=== PATIENT | male | born 1970 | race Hispanic/Latino ===

== ENCOUNTER → 2016-03-13 | Outpatient (CLI) | payer BC ==
[~2016-03-13] MED LIST: OMEP10CASR PO; SUDA30TA PO
[2016-03-13 18:57] LABS: ALBUMIN 3.8 GM/DL (3.2-5.2); ALBUMIN/GLOBULIN RATIO 1.12 (1.00-1.93); ALKALINE PHOSPHATASE 146 U/L (45-117); ALT/SGPT 60 U/L (12-78); ANION GAP 9 MEQ/L (8-16); AST/SGOT 26 U/L (15-37); BILIRUBIN,TOTAL 0.7 MG/DL (0.2-1.0); BLOOD UREA NITROGEN 20 MG/DL (7-18); CALCIUM LEVEL 8.7 MG/DL (8.5-10.1); CARBON DIOXIDE LEVEL 29 MEQ/L (21-32); CHLORIDE LEVEL 105 MEQ/L (98-107); CREATININE FOR GFR 0.95 MG/DL (0.70-1.30); GLOMERULAR FILTRATION RATE > 60.0 (>60); GLUCOSE, FASTING 90 MG/DL (70-105); MAGNESIUM LEVEL 2.1 MG/DL (1.8-2.4); POTASSIUM SERUM 4.5 MEQ/L (3.5-5.1); SODIUM LEVEL 143 MEQ/L (136-145); TOTAL PROTEIN 7.2 GM/DL (6.4-8.2)
[2016-03-13 18:58] LABS: BASO % 0.3 % (0.0-1.0); EOS # 0.1 K/mm3 (0.0-0.50); EOS % 1.5 % (0.0-3.0); LARGE UNSTAINED CELL # 0.2 K/mm3 (0.0-0.4); LARGE UNSTAINED CELL % 2.4 % (0.0-4.0); LYMPH # 2.8 K/mm3 (1.5-4.5); LYMPH % 34.4 % (24.0-44.0); MEAN CORPUSCULAR HEMOGLOBIN 25.4 pg (27.0-33.0); MEAN CORPUSCULAR HGB CONC 31.4 g/dl (32.0-36.5); MEAN CORPUSCULAR VOLUME 80.7 fl (80.0-96.0); MONO # 0.6 K/mm3 (0.0-0.8); MONO % 7.8 % (0.0-5.0); NEUTROPHILS # 4.3 K/mm3 (1.8-7.7); NEUTROPHILS % 53.6 % (36.0-66.0); PLATELET COUNT, AUTOMATED 230 k/mm3 (150-450); RED CELL DISTRIBUTION WIDTH 13.6 % (11.5-14.5); WHITE BLOOD COUNT 8.1 K/mm3 (4.0-10.0)
--- NOTE | 2016-03-14 02:20 | REP ---
Clinical: Shortness of breath . Comparison: None . Technique: PA and lateral. Findings: The mediastinum and cardiac silhouette are normal. The lung jones are clear and without acute consolidation, effusion, or pneumothorax. The skeletal structures are intact and normal. Impression: 1. No acute cardiopulmonary process. Signed by Yasmani Carrillo MD 03/14/2016 02:12 A
== END ==
LOC: M SMT 15:55
PROVIDERS: ATTEND Emergency Medicine
DX: R00.2 Palpitations (principal); R06.02 Shortness of breath

== ENCOUNTER → 2016-04-12 | Outpatient (CLI) | payer BC ==
[2016-04-12 13:59] LABS: ALBUMIN 3.7 GM/DL (3.2-5.2); ALBUMIN/GLOBULIN RATIO 0.95 (1.00-1.93); BILIRUBIN,DIRECT 0.1 MG/DL (0.0-0.2); BILIRUBIN,TOTAL 0.6 MG/DL (0.2-1.0); TOTAL PROTEIN 7.6 GM/DL (6.4-8.2)
[2016-04-12 14:25] LABS: MEAN CORPUSCULAR HEMOGLOBIN 25.7 pg (27.0-33.0); MEAN CORPUSCULAR HGB CONC 31.9 g/dl (32.0-36.5); MEAN CORPUSCULAR VOLUME 80.6 fl (80.0-96.0); RED CELL DISTRIBUTION WIDTH 13.8 % (11.5-14.5); WHITE BLOOD COUNT 6.6 K/mm3 (4.0-10.0)
== END ==
LOC: M SMT 08:14
PROVIDERS: ATTEND Urology
DX: E29.1 Testicular hypofunction (principal)

== ENCOUNTER → 2016-07-06 | Outpatient (CLI) | payer BC ==
[2016-07-06 14:37] LABS: BASO % 0.4 % (0.0-1.0); EOS # 0.2 K/mm3 (0.0-0.50); EOS % 2.5 % (0.0-3.0); LARGE UNSTAINED CELL # 0.2 K/mm3 (0.0-0.4); LARGE UNSTAINED CELL % 2.3 % (0.0-4.0); LYMPH # 2.8 K/mm3 (1.5-4.5); LYMPH % 41.7 % (24.0-44.0); MEAN CORPUSCULAR HEMOGLOBIN 26.4 pg (27.0-33.0); MEAN CORPUSCULAR HGB CONC 32.6 g/dl (32.0-36.5); MONO # 0.5 K/mm3 (0.0-0.8); MONO % 7.9 % (0.0-5.0); NEUTROPHILS % 45.1 % (36.0-66.0); PLATELET COUNT, AUTOMATED 208 k/mm3 (150-450); RED CELL DISTRIBUTION WIDTH 14.6 % (11.5-14.5); WHITE BLOOD COUNT 6.7 K/mm3 (4.0-10.0)
[2016-07-06 14:42] LABS: ALBUMIN 3.5 GM/DL (3.2-5.2); ALBUMIN/GLOBULIN RATIO 1.03 (1.00-1.93); ALKALINE PHOSPHATASE 120 U/L (45-117); ALT/SGPT 61 U/L (12-78); ANION GAP 7 MEQ/L (8-16); AST/SGOT 23 U/L (15-37); BILIRUBIN,DIRECT 0.1 MG/DL (0.0-0.2); BILIRUBIN,TOTAL 0.6 MG/DL (0.2-1.0); BLOOD UREA NITROGEN 23 MG/DL (7-18); CALCIUM LEVEL 8.7 MG/DL (8.5-10.1); CARBON DIOXIDE LEVEL 30 MEQ/L (21-32); CHLORIDE LEVEL 104 MEQ/L (98-107); CREATININE FOR GFR 0.84 MG/DL (0.70-1.30); GLOMERULAR FILTRATION RATE > 60.0 (>60); GLUCOSE, FASTING 100 MG/DL (70-105); POTASSIUM SERUM 4.6 MEQ/L (3.5-5.1); SODIUM LEVEL 141 MEQ/L (136-145); TOTAL PROTEIN 6.9 GM/DL (6.4-8.2)
== END ==
LOC: M SMT 09:12
PROVIDERS: ATTEND Urology
DX: E29.1 Testicular hypofunction (principal)

== ENCOUNTER → 2016-08-21 | Outpatient (CLI) | payer BC ==
[2016-08-21 13:15] LABS: MEAN CORPUSCULAR HEMOGLOBIN 25.8 pg (27.0-33.0); MEAN CORPUSCULAR HGB CONC 32.4 g/dl (32.0-36.5); MEAN CORPUSCULAR VOLUME 79.6 fl (80.0-96.0); RED CELL DISTRIBUTION WIDTH 14.3 % (11.5-14.5); WHITE BLOOD COUNT 7.2 K/mm3 (4.0-10.0)
[2016-08-21 13:50] LABS: ALBUMIN 3.6 GM/DL (3.2-5.2); ALBUMIN/GLOBULIN RATIO 1.03 (1.00-1.93); ALKALINE PHOSPHATASE 120 U/L (45-117); ALT/SGPT 57 U/L (12-78); ANION GAP 11 MEQ/L (8-16); AST/SGOT 26 U/L (15-37); BILIRUBIN,DIRECT 0.1 MG/DL (0.0-0.2); BILIRUBIN,TOTAL 0.8 MG/DL (0.2-1.0); BLOOD UREA NITROGEN 20 MG/DL (7-18); CALCIUM LEVEL 9.2 MG/DL (8.5-10.1); CARBON DIOXIDE LEVEL 26 MEQ/L (21-32); CHLORIDE LEVEL 103 MEQ/L (98-107); GLOMERULAR FILTRATION RATE > 60.0 (>60); GLUCOSE, FASTING 101 MG/DL (70-105); POTASSIUM SERUM 3.9 MEQ/L (3.5-5.1); SODIUM LEVEL 140 MEQ/L (136-145); TOTAL PROTEIN 7.1 GM/DL (6.4-8.2)
== END ==
LOC: M SMT 10:57
PROVIDERS: ATTEND Urology
DX: E29.1 Testicular hypofunction (principal)

== ENCOUNTER → 2016-09-27 | Outpatient (CLI) | payer BC ==
[2016-09-27 12:41] LABS: BASO % 0.4 % (0.0-1.0); EOS # 0.1 K/mm3 (0.0-0.50); EOS % 2.3 % (0.0-3.0); LARGE UNSTAINED CELL # 0.1 K/mm3 (0.0-0.4); LARGE UNSTAINED CELL % 1.6 % (0.0-4.0); LYMPH # 2.7 K/mm3 (1.5-4.5); LYMPH % 44.3 % (24.0-44.0); MEAN CORPUSCULAR HEMOGLOBIN 25.9 pg (27.0-33.0); MEAN CORPUSCULAR HGB CONC 31.9 g/dl (32.0-36.5); MONO # 0.5 K/mm3 (0.0-0.8); MONO % 8.5 % (0.0-5.0); NEUTROPHILS # 2.6 K/mm3 (1.8-7.7); NEUTROPHILS % 42.9 % (36.0-66.0); PLATELET COUNT, AUTOMATED 223 k/mm3 (150-450); RED CELL DISTRIBUTION WIDTH 14.3 % (11.5-14.5)
[2016-09-27 13:37] LABS: ALBUMIN 3.7 GM/DL (3.2-5.2); ALBUMIN/GLOBULIN RATIO 1.03 (1.00-1.93); ALKALINE PHOSPHATASE 113 U/L (45-117); ALT/SGPT 63 U/L (12-78); ANION GAP 6 MEQ/L (8-16); AST/SGOT 23 U/L (15-37); BILIRUBIN,TOTAL 0.9 MG/DL (0.2-1.0); BLOOD UREA NITROGEN 20 MG/DL (7-18); CALCIUM LEVEL 8.9 MG/DL (8.5-10.1); CARBON DIOXIDE LEVEL 29 MEQ/L (21-32); CHLORIDE LEVEL 104 MEQ/L (98-107); GLOMERULAR FILTRATION RATE > 60.0 (>60); GLUCOSE, FASTING 87 MG/DL (70-105); POTASSIUM SERUM 4.7 MEQ/L (3.5-5.1); SODIUM LEVEL 139 MEQ/L (136-145); TOTAL PROTEIN 7.3 GM/DL (6.4-8.2)
== END ==
LOC: M SMT 09:42
PROVIDERS: ATTEND Orthopaedic Surgery
DX: M16.12 Unilateral primary osteoarthritis, left hip (principal)

== ENCOUNTER → 2016-11-27 | Outpatient (REF) | payer BC ==
[2016-11-27 13:24] LABS: MEAN CORPUSCULAR HGB CONC 31.9 g/dl (32.0-36.5); MEAN CORPUSCULAR VOLUME 78.2 fl (80.0-96.0); PLATELET COUNT, AUTOMATED 254 10^3/uL (150-450); RED CELL DISTRIBUTION WIDTH 15.8 % (11.5-14.5); WHITE BLOOD COUNT 7.6 10^3/uL (4.0-10.0)
[2016-11-27 13:35] LABS: ALBUMIN 3.5 GM/DL (3.2-5.2); ALBUMIN/GLOBULIN RATIO 0.92 (1.00-1.93); ALKALINE PHOSPHATASE 112 U/L (45-117); ALT/SGPT 54 U/L (12-78); ANION GAP 5 MEQ/L (8-16); AST/SGOT 30 U/L (15-37); BILIRUBIN,DIRECT 0.1 MG/DL (0.0-0.2); BILIRUBIN,TOTAL 0.6 MG/DL (0.2-1.0); BLOOD UREA NITROGEN 22 MG/DL (7-18); CALCIUM LEVEL 8.8 MG/DL (8.5-10.1); CARBON DIOXIDE LEVEL 30 MEQ/L (21-32); CHLORIDE LEVEL 104 MEQ/L (98-107); CREATININE FOR GFR 1.07 MG/DL (0.70-1.30); GLOMERULAR FILTRATION RATE > 60.0 (>60); GLUCOSE, FASTING 97 MG/DL (70-105); SODIUM LEVEL 139 MEQ/L (136-145); TOTAL PROTEIN 7.3 GM/DL (6.4-8.2)
== END ==
LOC: M LABSMT 12:51
PROVIDERS: ATTEND Urology
DX: E29.1 Testicular hypofunction (principal)

== ENCOUNTER → 2017-01-01 | Outpatient (CLI) | payer BC ==
[2017-01-01 19:32] LABS: BASO % 0.3 % (0.0-1.0); EOS # 0.1 10^3/uL (0.0-0.50); EOS % 1.7 % (0.0-3.0); IMMATURE GRANULOCYTE % 0.4 % (0-0); LYMPH % 38.8 % (24.0-44.0); MEAN CORPUSCULAR HGB CONC 31.8 g/dl (32.0-36.5); MEAN CORPUSCULAR VOLUME 78.8 fl (80.0-96.0); MONO # 0.9 10^3/uL (0.0-0.8); MONO % 11.3 % (0.0-5.0); NEUTROPHILS # 3.6 10^3/uL (1.8-7.7); NEUTROPHILS % 47.5 % (36.0-66.0); PLATELET COUNT, AUTOMATED 296 10^3/uL (150-450); RED CELL DISTRIBUTION WIDTH 16.7 % (11.5-14.5); WHITE BLOOD COUNT 7.6 10^3/uL (4.0-10.0)
== END ==
LOC: M SMT 15:01
PROVIDERS: ATTEND Emergency Medicine
DX: R53.83 Other fatigue (principal)

== ENCOUNTER → 2017-01-14 | Outpatient (CLI) | payer BC ==
[2017-01-14 09:05] LABS: MEAN CORPUSCULAR HEMOGLOBIN 25.1 pg (27.0-33.0); MEAN CORPUSCULAR HGB CONC 32.1 g/dl (32.0-36.5); MEAN CORPUSCULAR VOLUME 78.3 fl (80.0-96.0); PLATELET COUNT, AUTOMATED 235 10^3/uL (150-450); RED CELL DISTRIBUTION WIDTH 17.2 % (11.5-14.5); WHITE BLOOD COUNT 8.6 10^3/uL (4.0-10.0)
[2017-01-14 09:30] LABS: ALBUMIN 3.7 GM/DL (3.2-5.2); ALKALINE PHOSPHATASE 108 U/L (45-117); ALT/SGPT 48 U/L (12-78); ANION GAP 8 MEQ/L (8-16); AST/SGOT 19 U/L (7-37); BILIRUBIN,DIRECT 0.2 MG/DL (0.0-0.2); BILIRUBIN,TOTAL 0.9 MG/DL (0.2-1.0); BLOOD UREA NITROGEN 18 MG/DL (7-18); CALCIUM LEVEL 8.9 MG/DL (8.5-10.1); CARBON DIOXIDE LEVEL 30 MEQ/L (21-32); CHLORIDE LEVEL 101 MEQ/L (98-107); GLOMERULAR FILTRATION RATE > 60.0 (>60); GLUCOSE, FASTING 104 MG/DL (70-105); POTASSIUM SERUM 4.3 MEQ/L (3.5-5.1); SODIUM LEVEL 139 MEQ/L (136-145); TOTAL PROTEIN 7.4 GM/DL (6.4-8.2)
== END ==
LOC: M LAB 08:37
PROVIDERS: ATTEND Urology
DX: E29.1 Testicular hypofunction (principal)

== ENCOUNTER 2017-03-05 12:22 | Day surgery (SDC) | payer BC ==
[2017-03-05] MEDS: NS 1,000 ML IV (13:15)
[2017-03-05] MEDS ORDERED: PROPOFOL 200 MG/20 ML VIAL As Ordered ×2 (13:52)
[2017-03-05] MEDS ORDERED: LIDOCAINE 2% INJ 100 MG/5 ML SDV (FOR ANES.) As Ordered (13:52)
== END 2017-03-05 14:42 | disposition home or self-care (01) ==
LOC: M OPP 12:22
DX: K62.5 Hemorrhage of anus and rectum (principal); D12.6 Benign neoplasm of colon, unspecified; K64.0 First degree hemorrhoids; K57.30 Diverticulosis of large intestine without perforation or abscess without bleeding; K21.9 Gastro-esophageal reflux disease without esophagitis; Z80.0 Family history of malignant neoplasm of digestive organs; Z79.899 Other long term (current) drug therapy; Z91.030 Bee allergy status
CPT/HCPCS: 45385

== ENCOUNTER → 2017-04-11 | Outpatient (CLI) | payer BC ==
[2017-04-11 18:00] LABS: HEMATOCRIT 46.4 % (42.0-52.0); HEMOGLOBIN 15.3 g/dl (14.0-18.0); MEAN CORPUSCULAR HEMOGLOBIN 26.2 pg (27.0-33.0); MEAN CORPUSCULAR VOLUME 79.5 fl (80.0-96.0); PLATELET COUNT, AUTOMATED 248 10^3/uL (150-450); RED BLOOD COUNT 5.84 10^6/uL (4.30-6.10); RED CELL DISTRIBUTION WIDTH 15.5 % (11.5-14.5)
[2017-04-11 19:02] LABS: TESTOSTERONE 227 NG/DL (241-827)
[2017-04-11 19:11] LABS: ALBUMIN/GLOBULIN RATIO 1.08 (1.00-1.93); ALKALINE PHOSPHATASE 111 U/L (45-117); ALT/SGPT 61 U/L (12-78); AST/SGOT 24 U/L (7-37); BILIRUBIN,DIRECT 0.1 MG/DL (0.0-0.2); BILIRUBIN,TOTAL 0.6 MG/DL (0.2-1.0); TOTAL PROTEIN 7.7 GM/DL (6.4-8.2)
== END ==
LOC: M SMT 15:53
DX: E29.1 Testicular hypofunction (principal)
CPT/HCPCS: 84403

== ENCOUNTER → 2017-05-31 | Outpatient (CLI) | payer BC ==
[2017-05-31 13:56] LABS: PROSTATIC SPECIFIC AG MONITOR 1.64 NG/ML (< 4.0)
[2017-05-31 14:01] LABS: TESTOSTERONE 211 NG/DL (241-827)
== END ==
LOC: M SMT 11:21
DX: E29.1 Testicular hypofunction (principal)
CPT/HCPCS: 84403

== ENCOUNTER → 2017-12-14 | Outpatient (CLI) | payer BC ==
[2017-12-14 13:49] LABS: ALBUMIN 3.8 GM/DL (3.2-5.2); ALBUMIN/GLOBULIN RATIO 1.12 (1.00-1.93); ALKALINE PHOSPHATASE 114 U/L (45-117); ALT/SGPT 72 U/L (12-78); ANION GAP 7 MEQ/L (8-16); AST/SGOT 31 U/L (7-37); BILIRUBIN,TOTAL 0.6 MG/DL (0.2-1.0); BLOOD UREA NITROGEN 19 MG/DL (7-18); CARBON DIOXIDE LEVEL 29 MEQ/L (21-32); CHLORIDE LEVEL 103 MEQ/L (98-107); CHOLESTEROL LEVEL 159 MG/DL (<200); CHOLESTEROL RISK RATIO 4.818 (<5); CREATININE FOR GFR 0.78 MG/DL (0.70-1.30); GLOMERULAR FILTRATION RATE > 60.0 (>60); GLUCOSE, FASTING 97 MG/DL (70-100); HDL CHOLESTEROL 33 MG/DL (>40); LDL CHOLESTEROL 101 MG/DL (<100); NON-HDL-C 126 MG/DL; POTASSIUM SERUM 4.4 MEQ/L (3.5-5.1); SODIUM LEVEL 139 MEQ/L (136-145); TOTAL PROTEIN 7.2 GM/DL (6.4-8.2); TRIGLYCERIDES LEVEL 127 MG/DL (<150)
[2017-12-14 15:25] LABS: ESTIMATED AVERAGE GLUCOSE 123 MG/DL (60-110); HEMOGLOBIN A1c 5.9 %
== END ==
LOC: M SMT 09:52
DX: Z00.00 Encounter for general adult medical examination without abnormal findings (principal)
CPT/HCPCS: 80053

== ENCOUNTER → 2018-01-03 | Outpatient (CLI) | payer BC ==
[2018-01-03 13:59] LABS: BASO % 0.4 % (0.0-1.0); EOS # 0.2 10^3/uL (0.0-0.50); EOS % 2.1 % (0.0-3.0); HEMATOCRIT 47.8 % (42.0-52.0); HEMOGLOBIN 15.5 g/dl (13.5-17.5); IMMATURE GRANULOCYTE % 0.4 % (0-3.0); LYMPH # 3.2 10^3/uL (1.5-4.5); LYMPH % 43.9 % (24.0-44.0); MEAN CORPUSCULAR HEMOGLOBIN 26.9 pg (27.0-33.0); MEAN CORPUSCULAR HGB CONC 32.4 g/dl (32.0-36.5); MEAN CORPUSCULAR VOLUME 82.8 fl (80.0-96.0); MONO # 0.7 10^3/uL (0.0-0.8); MONO % 9.6 % (0.0-5.0); NEUTROPHILS # 3.2 10^3/uL (1.8-7.7); NEUTROPHILS % 43.6 % (36.0-66.0); PLATELET COUNT, AUTOMATED 240 10^3/uL (150-450); RED BLOOD COUNT 5.77 10^6/uL (4.30-6.10); RED CELL DISTRIBUTION WIDTH 13.8 % (11.5-14.5); WHITE BLOOD COUNT 7.3 10^3/uL (4.0-10.0)
[2018-01-03 14:27] LABS: ALBUMIN 3.6 GM/DL (3.2-5.2); ALBUMIN/GLOBULIN RATIO 0.97 (1.00-1.93); ALKALINE PHOSPHATASE 117 U/L (45-117); ALT/SGPT 79 U/L (12-78); ANION GAP 8 MEQ/L (8-16); AST/SGOT 31 U/L (7-37); BILIRUBIN,TOTAL 0.9 MG/DL (0.2-1.0); BLOOD UREA NITROGEN 18 MG/DL (7-18); CALCIUM LEVEL 8.3 MG/DL (8.5-10.1); CARBON DIOXIDE LEVEL 27 MEQ/L (21-32); CHLORIDE LEVEL 102 MEQ/L (98-107); CREATININE FOR GFR 0.89 MG/DL (0.70-1.30); GLOMERULAR FILTRATION RATE > 60.0 (>60); GLUCOSE, FASTING 106 MG/DL (70-100); POTASSIUM SERUM 4.2 MEQ/L (3.5-5.1); PSA SCREENING 0.9 NG/ML (< 4.0); SODIUM LEVEL 137 MEQ/L (136-145); TESTOSTERONE 283 NG/DL (241-827); TOTAL PROTEIN 7.3 GM/DL (6.4-8.2)
== END ==
LOC: M SMT 09:36
DX: E29.1 Testicular hypofunction (principal)
CPT/HCPCS: 84403

== ENCOUNTER → 2018-06-06 | Outpatient (CLI) | payer BC ==
[~2018-06-06] MED LIST changes: +CHLO125TA PO; +LISI-542 PO
[2018-06-06 09:38] LABS: HEMATOCRIT 49.1 % (42.0-52.0); HEMOGLOBIN 15.9 g/dl (13.5-17.5); MEAN CORPUSCULAR HEMOGLOBIN 26.2 pg (27.0-33.0); MEAN CORPUSCULAR HGB CONC 32.4 g/dl (32.0-36.5); MEAN CORPUSCULAR VOLUME 80.9 fl (80.0-96.0); PLATELET COUNT, AUTOMATED 245 10^3/uL (150-450); RED BLOOD COUNT 6.07 10^6/uL (4.30-6.10); WHITE BLOOD COUNT 7.4 10^3/uL (4.0-10.0)
[2018-06-06 09:59] LABS: ALBUMIN 3.9 GM/DL (3.2-5.2); BILIRUBIN,DIRECT 0.2 MG/DL (0.0-0.2); BILIRUBIN,TOTAL 0.8 MG/DL (0.2-1.0); TOTAL PROTEIN 7.5 GM/DL (6.4-8.2)
== END ==
LOC: M LAB 08:36
PROVIDERS: ATTEND Urology
DX: E29.1 Testicular hypofunction (principal)

== ENCOUNTER → 2018-06-13 | Outpatient (CLI) | payer BC ==
[2018-06-13 11:09] LABS: BLOOD UREA NITROGEN 23 MG/DL (7-18); CALCIUM LEVEL 9.2 MG/DL (8.5-10.1); CARBON DIOXIDE LEVEL 27 MEQ/L (21-32); CHLORIDE LEVEL 102 MEQ/L (98-107); CREATININE FOR GFR 0.86 MG/DL (0.70-1.30); GLOMERULAR FILTRATION RATE > 60.0 (>60); GLUCOSE, FASTING 97 MG/DL (70-100); POTASSIUM SERUM 4.1 MEQ/L (3.5-5.1); SODIUM LEVEL 138 MEQ/L (136-145)
== END ==
LOC: M LAB 10:07
PROVIDERS: ATTEND Physician Assistant
DX: I10 Essential (primary) hypertension (principal)

== ENCOUNTER → 2018-07-08 | Outpatient (CLI) | payer BC | LOC: M PT 07:49 | PROVIDERS: ATTEND Physician Assistant Surgical | DX: M16.12 Unilateral primary osteoarthritis, left hip (principal) ==

== ENCOUNTER → 2018-08-02 | Outpatient (CLI) | payer BC ==
[~2018-08-02] MED LIST changes: +ANDR1.62 TOP; +CELE1CAP9 PO; +OMEP20CA3 PO; +TRAM50TA2 PO
[2018-08-02 08:36] LABS: HEMATOCRIT 48.8 % (42.0-52.0); HEMOGLOBIN 15.6 g/dl (13.5-17.5); MEAN CORPUSCULAR HEMOGLOBIN 26.6 pg (27.0-33.0); MEAN CORPUSCULAR VOLUME 83.3 fl (80.0-96.0); PLATELET COUNT, AUTOMATED 226 10^3/uL (150-450); RED BLOOD COUNT 5.86 10^6/uL (4.30-6.10); WHITE BLOOD COUNT 6.3 10^3/uL (4.0-10.0)
[2018-08-02 08:50] LABS: INR 1.05; PROTHROMBIN TIME 13.4 SECONDS (11.8-14.0)
[2018-08-02 08:59] LABS: ALBUMIN 3.5 GM/DL (3.2-5.2); ALT/SGPT 84 U/L (12-78); BILIRUBIN,TOTAL 0.6 MG/DL (0.2-1.0); BLOOD UREA NITROGEN 24 MG/DL (7-18); CALCIUM LEVEL 8.8 MG/DL (8.5-10.1); CARBON DIOXIDE LEVEL 32 MEQ/L (21-32); CHLORIDE LEVEL 106 MEQ/L (98-107); CREATININE FOR GFR 0.99 MG/DL (0.70-1.30); GLOMERULAR FILTRATION RATE > 60.0 (>60); GLUCOSE, FASTING 101 MG/DL (70-100); POTASSIUM SERUM 3.6 MEQ/L (3.5-5.1); SODIUM LEVEL 141 MEQ/L (136-145); TOTAL PROTEIN 7.1 GM/DL (6.4-8.2)
--- NOTE | 2018-08-02 09:09 | REP ---
Clinical: Preoperative assessment. Left hip arthroplasty . Comparison: 03/13/2016 . Technique: PA and lateral. Findings: The mediastinum and cardiac silhouette are normal. The lung jones are clear and without acute consolidation, effusion, or pneumothorax. The skeletal structures are intact and normal. Impression: 1. No acute cardiopulmonary process. Electronically Signed by Yasmani Carrillo MD 08/02/2018 09:01 A
[2018-08-02 09:26] LABS: ERYTHROCYTE SEDIMENTATION RATE 8 mm/hr (0-15)
--- NOTE | 2018-08-02 12:45 | ECGEPIP ---
[facility] Test Date: 2018-08-02 Pat Name: DEANDRE COULTER Department: Room: - Gender: Male Information Clerk: ASTON : 1970 Requested By: Werner Horner Order Number: [id number] Reading MD: Ian Hanks Measurements Intervals Tyner Rate: 87 P: 44 DE: 132 QRS: 31 QRSD: 117 T: 28 QT: 346 QTc: 417 Interpretive Statements SINUS RHYTHM MODERATE INTRAVENTRICULAR CONDUCTION DELAY/RIGHT BUNDLE BRANCH PATTERN NONSPECIFIC T-WAVE ABNORMALITY No prior tracing in the system Electronically Signed on 08-02-2018 12:45:34 EDT by Ian Hanks
== END ==
LOC: M LAB 07:44
PROVIDERS: ATTEND Orthopaedic Surgery
DX: M17.12 Unilateral primary osteoarthritis, left knee (principal)

== ENCOUNTER 2018-08-28 05:52 | Inpatient (IN) | payer BC ==
--- NOTE | 2018-08-19 12:37 | HPE ---
DATE OF ANTICIPATED ADMISSION: 08/28/2018 ATTENDING PHYSICIAN: Dr. Werner Horner CHIEF COMPLAINT: Left hip pain and stiffness. HISTORY: This is a pleasant 48-year-old male patient with progressively worsening left hip pain and stiffness. He has failed to improve with conservative management and has elected for surgery for his continued symptoms. He is consented for a left total hip arthroplasty by Dr. Horner. ALLERGIES: Bee stings. CURRENT MEDICATIONS: - lisinopril 5 mg - chlorthalidone 25 mg - omeprazole 20 mg - tramadol 50 mg - Celebrex 200 mg - AndroGel pump 20.25 mg PAST MEDICAL HISTORY: Sleep apnea, hypertension, gastroesophageal reflux disease, low testosterone PAST SURGICAL HISTORY: Appendectomy and LASIK. FAMILY HISTORY: Mother of colon cancer. Father hypertension, diabetes, heart disease. SOCIAL HISTORY: The patient is a nonsmoker and denies alcohol use. REVIEW OF SYSTEMS: Denies fever, chills, chest pain, shortness breath, nausea, vomiting, diarrhea. Denies any recent upper respiratory or urinary tract infection symptoms. Reports pain and stiffness in the left hip with weightbearing. PHYSICAL EXAMINATION: Height 70.5 inches, weight 312 pounds, temperature 98.4 degrees, blood pressure 130/90, pulse 88, respirations 17. Normocephalic, atraumatic. Neck: Supple with no lymphadenopathy or jugular venous distention (JVD). Lungs: Clear to auscultation bilaterally with no wheezes, rales, rhonchi. Cardiac: S1, S2 auscultated with no murmurs, rubs or gallops. Abdomen: Soft, nontender. Extremities: The left hip the overlying skin is intact with no erythema, edema or ecchymosis. He has discomfort with range of motion. The left lower extremity is well perfused and neurovascular status is intact distally. EKG notable for a sinus rhythm with right bundle branch block and nonspecific T-wave abnormalities. Chest x-ray with no acute cardiopulmonary process. LABORATORY DATA: White blood count 6.3, red blood count 5.86, hemoglobin 15.6, hematocrit 48.8, ESR 8, BUN 24, creatinine 0.99, PT 13.4, INR 1.05. Preoperative medical optimization by Dr. Munson available for review on the chart today. IMPRESSION: Left hip symptomatic osteoarthritis. PLAN: Consented for left total hip arthroplasty by Dr. Werner Horner.
[~2018-08-28] VITALS: Ht 177.8 cm; Wt 142.2 kg
[2018-08-28] VITALS (8 sets, daily range): BP systolic 120–152; BP diastolic 74–100
[~2018-08-28 05:52] MED LIST changes: -OMEP20CA3 PO; +OMEP20CA4 PO
[2018-08-28] MEDS ORDERED: ceFAZolin 1GM INJ (J0690 PER 500MG) As Ordered ONE ×2 (06:17→06:49)
[2018-08-28] MEDS ORDERED: TRANEXAMIC ACID 100 MG/ML 10ML VIAL As Ordered ONE (06:48)
[2018-08-28] MEDS ORDERED: BUPIVACAINE HCL 0.25% 30 ML VIAL As Ordered ONE (06:49)
[2018-08-28] MEDS ORDERED: EPINEPHrine INJ 1 MG/ML 1ML AMP As Ordered ONE (06:49)
[2018-08-28] MEDS ORDERED: BUPIVACAINE LIPOSOME/PF 1.3% 20ML VIAL (13.3MG/ML)(EXPAREL)(C9290 PER1MG) As Ordered ONE (06:49)
[2018-08-28] MEDS ORDERED: fentaNYL 100 MCG/2 ML INJECTION (J3010) As Ordered ONE ×3 (06:50→09:57)
[2018-08-28] MEDS ORDERED: MIDAZOLAM INJ 2 MG/2 ML VIAL (J2250) As Ordered ONE ×3 (06:50→09:12)
[2018-08-28] MEDS ORDERED: PROPOFOL 200 MG/20 ML VIAL As Ordered ONE ×2 (06:56→08:29)
[2018-08-28] MEDS ORDERED: dexameTHASONE 4 MG/ML 1ML VIAL (J1100) As Ordered ONE (07:00)
[2018-08-28] MEDS ORDERED: LR 1,000 ML IV ONE (07:00)
[2018-08-28] MEDS ORDERED: ONDANSETRON 4MG/2ML VIAL (J2405) As Ordered ONE ×2 (07:00→10:01)
[2018-08-28] MEDS ORDERED: ceFAZolin SOD 1 GM in D5W MINI-BAG PLUS 50 ML IV ONE (07:40)
--- NOTE | 2018-08-28 07:45 | IPN ---
DATE: 08/28/2018 The patient was seen and examined. He wishes to go ahead with a left total hip arthroplasty. He understands the nature of this, the risks of bleeding, infection, damage to nerves, vessels, persistent pain, wear, loosening, dislocation, leg length inequality, blood clots, medical problems, , among others. He understands he is at significantly higher risk of perioperative complications due to his morbid obesity.
[2018-08-28] MEDS ORDERED: ACETAMINOPHEN 1000MG 100ML IV BTL (OFIRMEV) (J0131 PER 10MG) As Ordered ONE (08:20)
[2018-08-28] MEDS ORDERED: PHENYLephrine HCL 500 MCG/5 ML (100MCG/ML) SYRINGE (J2370) As Ordered ONE (08:24)
[2018-08-28] MEDS ORDERED: KETAMINE HCL 200 MG/20 ML VIAL As Ordered ONE (09:11)
[2018-08-28] MEDS ORDERED: oxyCODONE 5MG TAB As Ordered ONE (09:48)
[2018-08-28] MEDS: oxyCODONE 5MG TAB PO PRN ×2 (09:50→10:36)
[2018-08-28] MEDS: fentaNYL 100 MCG/2 ML INJECTION (J3010) IV PRN ×4 (10:00→10:25)
[2018-08-28] MEDS ORDERED: LR 1,000 ML IV SCH ×2 (10:15→10:45)
[2018-08-28] MEDS ORDERED: MORPHINE 4 MG/ML 1ML VIAL/SYRINGE (J2270) IV PRN ×2 (10:15)
[2018-08-28] MEDS ORDERED: ONDANSETRON 4MG/2ML VIAL (J2405) IV PRN ×2 (10:15→10:45)
[2018-08-28] MEDS ORDERED: FLEET ENEMA PR PRN (10:30)
[2018-08-28] MEDS ORDERED: ACETAMINOPHEN TAB 650MG DOSE (2X325MG) PO PRN (10:30)
[2018-08-28] MEDS ORDERED: METOCLOPRAMIDE INJ 10MG/2ML VIAL (J2765) IV PRN (10:45)
[2018-08-28] MEDS ORDERED: PROMETHAZINE INJ 25 MG/ML VIAL (J2550) IV PRN (10:45)
--- NOTE | 2018-08-28 10:48 | REP ---
Left hip, postoperative study, three views: There is a total hip arthroplasty with the components tightly applied and in satisfactory positions alignment. Skin jordan are incidentally noted. Electronically Signed by Segundo Nolasco MD 08/28/2018 10:40 A
--- NOTE | 2018-08-28 12:42 | CR.PDOC ---
General Date of Consultation: Aug 28, 2018 Consultation PRIMARY CARE PHYSICIAN: DR. DIPTI NGUYEN REASON FOR CONSULT: MEDICAL MANAGEMENT HISTORY OF PRESENTING ILLNESS: 48-year-old male past medical history significant for morbid obesity bmi 45, obstructive Sleep apnea, hypertension, gastroesophageal reflux disease, low testosterone s/p left hip arthroplasty due to severe DJD limiting his ADL's. He denies any prior history of CHF, CO, CAD, dyslipidemia, DM, or CKD. He denies any sob, chest pain, pressure, tightness, lightheadedness, dizziness, weight changes, appetite changes, visual changes, headache, rhinorrhea, tinnitus, sore throat, nausea, vomiting, abdominal pain, dysuria, urgency, frequency, fever, chills, or flank pain, constipation, diarrhea, upper or lower extremity weakness, paresthesiass, dysphagia, odynophagia, BRBPR, melena, black tarry stools, anxiety, depression. Pt c/o 2/10 left hip pain postop which is manageable. Hospitalist was consulted to help manage chronic medical problems PAST MEDICAL HISTORY: Sleep apnea, hypertension, gastroesophageal reflux disease, low testosterone PAST SURGICAL HISTORY: Appendectomy and LASIK. ALLERGIES: Bee stings. HOME MEDICATIONS: - lisinopril 5 mg - chlorthalidone 25 mg - omeprazole 20 mg - tramadol 50 mg - Celebrex 200 mg - AndroGel pump 20.25 mg FAMILY HISTORY: Mother of colon cancer. Father hypertension, diabetes, heart disease. SOCIAL HISTORY: The patient is a nonsmoker. occasional beer or wine during the holidays. no recreational drug use. denies marijuan, cocaine, or heroin use. works as an [employer]. REVIEW OF SYSTEMS: Denies fever, chills, chest pain, shortness breath, nausea, vomiting, diarrhea. Denies any recent upper respiratory or urinary tract infection symptoms. Reports pain and stiffness in the left hip with weightbearing. PHYSICAL EXAMINATION: VITALS:PLS SEE BELOW GEN: AAOX3 no cyanosis, icterus, respiratory distress. speaks in full sentences Neck: Supple with no lymphadenopathy or jugular venous distention (JVD). Lungs: Clear to auscultation bilaterally with no wheezes, rales, rhonchi. Cardiac: S1, S2 auscultated with no murmurs, rubs or gallops. Abdomen: Soft, nontender.obese no hepatosplenomegaly. (+) bowel soundsx 4quadrants Extremities: postop left hip . no erythema, edema or ecchymosis. He has discomfort with range of motion. skin: b/l LE warm dry well perfused pink in color EKG notable for a sinus rhythm with right bundle branch block and nonspecific T-wave abnormalities. Chest x-ray with no acute cardiopulmonary process. LABORATORY DATA: White blood count 6.3, red blood count 5.86, hemoglobin 15.6, hematocrit 48.8, ESR 8, BUN 24, creatinine 0.99, PT 13.4, INR 1.05. ASSESSMENT AND PLAN: 48-year-old male past medical history significant for morbid obesity bmi 45, obstructive Sleep apnea, hypertension, gastroesophageal reflux disease, low testosterone s/p left hip arthroplasty due to severe DJD limiting his ADL's. He denies any prior history of CHF, CO, CAD, dyslipidemia, DM, or CKD. He denies any sob, chest pain, pressure, tightness, lightheadedness, dizziness, weight changes, appetite changes, visual changes, headache, rhinorrhea, tinnitus, sore throat, nausea, vomiting, abdominal pain, dysuria, urgency, frequency, fever, chills, or flank pain, constipation, diarrhea, upper or lower extremity weakness, paresthesiass, dysphagia, odynophagia, BRBPR, melena, black tarry stools, anxiety, depression. Hospitalist was consulted to help manage chronic medical problems Left hip arthroplasty -due to severe DJD limiting ADLs -post op pain mgt, dvt prophylaxis, activity, wound care, and bowel regimen per orthopedic surgery -PT/OT -MARY JO protocol postop Abnormal EKG -chronic RBBB -no acute ischemic symptoms MARY JO -resume cpap at home settings morbid obesity bmi 45, complicating care at risk for hypercarbia in light of anesthesia and pain meds mary jo protocol hypertension, resumed home meds-chlorthalidone and lisinopril, with holding parameters gastroesophageal reflux resumed home meds low testosterone outpt fu dvt prophylaxis: per ortho code status: full code Vital Signs/I&O Vital Signs Date Time Temp Pulse Resp B/P (MAP) Pulse Ox O2 Delivery O2 Flow Rate FiO2 08/28/18 11:06 75 18 110/72 (85) 94 08/28/18 10:55 97 Allergies Coded Allergies: bee venom protein (honey bee) (Verified Allergy, Unknown, 08/28/18) Home Medications Scheduled Celecoxib (Celecoxib) 200 Mg Capsule, 200 MG PO DAILY, (Reported) Chlorthalidone (Chlorthalidone) 12.5 Mg Halftab, 12.5 MG PO DAILY, (Reported) Lisinopril (Lisinopril) 5 Mg Tab, 5 MG PO DAILY, (Reported) Omeprazole (Omeprazole) 20 Mg Capsule.dr, 20 MG PO DAILY, (Reported) Testosterone (Androgel) 1.62% Gel..notcher, 4 PUMP TOP DAILY, (Reported) Scheduled PRN Tramadol HCl (Tramadol HCl) 50 Mg Tablet, 50 MG PO Q6HP PRN for PAIN, (Reported) RUBEN FLOWERS MD Aug 28, 2018 12:32
[2018-08-28] MEDS: LISINOPRIL 5 MG TAB PO SCH (12:57)
[2018-08-28] MEDS: PERCOCET 5MG/325MG TAB PO PRN ×3 (12:57→21:17)
[2018-08-28] MEDS: CHLORTHALIDONE 12.5MG PER 1/2 TABLET PO SCH (13:57)
[2018-08-28] MEDS: ceFAZolin SOD 1 GM in D5W MINI-BAG PLUS 50 ML IV SCH (16:07)
[2018-08-29 00:15] VITALS: BP 120/80
[2018-08-29] MEDS: ceFAZolin SOD 1 GM in D5W MINI-BAG PLUS 50 ML IV SCH (00:33)
[2018-08-29] MEDS: PERCOCET 5MG/325MG TAB PO PRN ×5 (03:20→21:55)
[2018-08-29 04:15] VITALS: BP 123/81
[2018-08-29 06:07] LABS: HEMATOCRIT 38.4 % (42.0-52.0); HEMOGLOBIN 12.5 g/dl (13.5-17.5); MEAN CORPUSCULAR HEMOGLOBIN 25.9 pg (27.0-33.0); MEAN CORPUSCULAR HGB CONC 32.6 g/dl (32.0-36.5); MEAN CORPUSCULAR VOLUME 79.7 fl (80.0-96.0); PLATELET COUNT, AUTOMATED 199 10^3/uL (150-450); RED BLOOD COUNT 4.82 10^6/uL (4.30-6.10); WHITE BLOOD COUNT 9.6 10^3/uL (4.0-10.0)
[2018-08-29] MEDS ORDERED: XARE10TA PO (06:12)
[2018-08-29] MEDS ORDERED: PERC5TAB12 PO ×2 (06:12→06:15)
[2018-08-29 08:15] VITALS: BP 120/82
--- NOTE | 2018-08-29 09:35 | IPNPDOC ---
Date Seen The patient was seen on 08/29/18. Progress Note SUBJECTIVE: didn't sleep well due to pain in the left hip. percocet was [id number] and pt did well the first 4hrs, but was awake due to discomfort. This am, not passed HSE because of achy pain "like I worked out too much and my muscles are achy." 5/10 on pain scale despite prn percocet. Ortho cleared pt for dc home, but not doing well with physical therapy. OBJECTIVE: PHYSICAL EXAMINATION: VITALS:PLS SEE BELOW GEN: AAOX3 no cyanosis, icterus, respiratory distress. speaks in full sentences Neck: Supple with no lymphadenopathy or jugular venous distention (JVD). Lungs: Clear to auscultation bilaterally with no wheezes, rales, rhonchi. Cardiac: S1, S2 auscultated with no murmurs, rubs or gallops. Abdomen: Soft, nontender.obese no hepatosplenomegaly. (+) bowel soundsx 4quadrants Extremities: postop left hip . no erythema, edema or ecchymosis. He has discomfort with range of motion. skin: b/l LE warm dry well perfused pink in color EKG notable for a sinus rhythm with right bundle branch block and nonspecific T-wave abnormalities. Chest x-ray with no acute cardiopulmonary process. OUTPATIENT LABORATORY DATA: White blood count 6.3, red blood count 5.86, hemoglobin 15.6, hematocrit 48.8, ESR 8, BUN 24, creatinine 0.99, PT 13.4, INR 1.05. ASSESSMENT AND PLAN: 48-year-old male past medical history significant for morbid obesity bmi 45, obstructive Sleep apnea, hypertension, gastroesophageal reflux disease, low testosterone s/p left hip arthroplasty due to severe DJD limiting his ADL's. He denies any prior history of CHF, MT, CAD, dyslipidemia, DM, or CKD. He denies any sob, chest pain, pressure, tightness, lightheadedness, dizziness, weight changes, appetite changes, visual changes, headache, rhinorrhea, tinnitus, sore throat, nausea, vomiting, abdominal pain, dysuria, urgency, frequency, fever, chills, or flank pain, constipation, diarrhea, upper or lower extremity weakness, paresthesiass, dysphagia, odynophagia, BRBPR, melena, black tarry stools, anxiety, depression. Hospitalist was consulted to help manage chronic medical problems Left hip arthroplasty -due to severe DJD limiting ADLs -post op pain mgt, dvt prophylaxis, activity, wound care, and bowel regimen per orthopedic surgery -PT/OT -MARY JO protocol postop Abnormal EKG -chronic RBBB -no acute ischemic symptoms MARY JO -resume cpap at home settings morbid obesity bmi 45, complicating care at risk for hypercarbia in light of anesthesia and pain meds mary jo protocol hypertension, resumed home meds-chlorthalidone and lisinopril, with holding parameters gastroesophageal reflux resumed home meds low testosterone outpt fu dvt prophylaxis: per ortho code status: full code disposition: awaiting physical therapy clearance. VS, I&O, 24H, Fishbone Vital Signs/I&O Vital Signs Date Time Temp Pulse Resp B/P (MAP) Pulse Ox O2 Delivery O2 Flow Rate FiO2 08/29/18 04:15 98.0 90 18 123/81 (95) 99 I&O- Last 24 Hours up to 6 AM 08/29/18 06:00 Intake Total 4050 ml Output Total 5525 ml Balance -1475 ml Laboratory Data 24H LABS Laboratory Tests 2 08/29/18 05:13: Nucleated Red Blood Cells % (auto) 0.0 CBC/BMP Laboratory Tests 08/29/18 05:13 Red Blood Count 4.82, Mean Corpuscular Volume 79.7 L, Mean Corpuscular Hem oglobin 25.9 L, Mean Corpuscular Hemoglobin Concent 32.6, Red Cell Distribution Width 15.2 H RUBEN FLOWERS MD Aug 29, 2018 07:47
[2018-08-29] MEDS ORDERED: KETOROLAC 30 MG/ML VIAL (J1885) IV ONE (09:45)
[2018-08-29] MEDS ORDERED: PERCOCET 5MG/325MG TAB PO ONE (09:45)
[2018-08-29] MEDS: MIRALAX *UNIT DOSE* 17GM PACKET PO SCH (09:47)
[2018-08-29] MEDS: MOM 30ML SUSPENSION UDC PO SCH (09:47)
[2018-08-29] MEDS: CHLORTHALIDONE 12.5MG PER 1/2 TABLET PO SCH (09:48)
[2018-08-29] MEDS: OMEPRAZOLE 20 MG CAP PO SCH (09:48)
[2018-08-29] MEDS: LISINOPRIL 5 MG TAB PO SCH (09:49)
--- NOTE | 2018-08-29 11:55 | RO ---
DATE OF PROCEDURE: 08/28/2018 PREOPERATIVE DIAGNOSIS: Left hip osteoarthritis. POSTOPERATIVE DIAGNOSIS: Left hip osteoarthritis. PROCEDURE: Left total hip arthroplasty using a Custer size 7 high offset with a +8.5 ceramic 36 ball, 54 acetabular component. SURGEON: Werner Horner MD CITY COLLECTOR: Lee Delcid PA-C ANESTHESIA: Spinal. ESTIMATED BLOOD LOSS: 250 mL. COMPLICATIONS: None. INDICATIONS: This is a 48-year-old gentleman with morbid obesity, a BMI of 46, who has had gradually worsening left hip pain. He wished to go ahead with surgical treatment. He understood the nature, risks associated with it, understood he was at high risk of this procedure because of his obesity. PROCEDURE: Patient was taken to the operating room, placed in the right lateral decubitus position on the Linden positioner. All areas were padded appropriately. The left hip was prepped and draped in the usual sterile fashion. A time out was performed. A longitudinal incision was made that was fairly lengthy over the lateral side of the hip due to his size. We dissected through the copious obesity and fat, controlled hemostasis with cautery. I then incised the fascia rita, divided the abductor, about the anterior 40% off the anterior aspect the femur. This was quite challenging due to his weight. Eventually I was able to dislocate the hip after freeing up the neck. Put the leg in the bag and then used the canal initiating reamer followed by the canal finding reamer, the lateralizing reamer and then sequentially reamed up to a size 7, which had good bleeding bone and good bony purchase. I made the neck cut about three-quarters of a fingerbreadth up from lesser trochanter, removed the head and then we prepared the acetabulum, which again was quite challenging due to his weight, removed any soft tissue. I then began reaming. I reamed up to a size 53 which had good concentric reaming, good bleeding bone. I removed any remaining soft tissue and then impacted a 54 cup which had excellent fit. I did remove some osteophytes. It was fairly difficult to get this cup impacted due to the depth of the wound and his bone quality being fairly dense. Once it was well seated in good position, I placed the apex hole eliminator followed by the 36 54 cup liner and impacted this in place made sure it was seated. I had irrigated multiple times. I then went to the canal sequentially broached up to the size 7, which had good fit and fill. I was not able to go any larger. I did use the calcar planer was smooth off the proximal aspect. Did some trials off of this and elected to go ahead with a +8.5 neck length high offset, which reproduces anatomy quite well. His soft tissue was appropriately balanced. I then removed the trial components, irrigated, placed the actual high offset size 7 Custer stem, impacted it in place, and placed a ceramic +8.5 36 ball, impacted this on over dry taper and then reduced the hip. It was somewhat difficult dislocating and reducing the hip due to his body habitus and the weight of his leg. We then put the hip through a range of motion. There was no impingement. I had removed some osteophytes from around the acetabulum. There was minimal shuck in full extension. Excellent stability in flexion, internal rotation, extension, external rotation. Irrigated copiously placed the TXA, repaired the minimus with #1 Vicryl suture and the abductor with #1 Vicryl suture with several stitches being placed. It appeared as though inferiorly on his abductor there was a little bit of pull off, this was repaired to the best of my ability with the tissues available. Irrigated, repaired the fascia rita with #1 Vicryl suture in running STRATAFIX suture, repaired the deep subcu with a running STRATAFIX suture in both directions, again to close some deep space and hopefully prevent some hematoma. I again irrigated, closed subcu with #2-0 Vicryl, skin with jordan. Sterile dressing was applied. He was taken to the recovery room in stable condition. There were no known complications. The plan will be routine postop. The assistant clinical nurse manager was instrumental in holding retractors, and assisting in reducing and dislocating the hip and assisting in wound closure. This is coded as an unusually difficult procedure due to the patient's BMI of approximately 46, which made the exposure and dislocation reduction substantially more difficult. It made assessing leg length and soft tissue balance more difficult, wound closure more difficult, and added time to the case.
[2018-08-29] MEDS ORDERED: RIVAROXABAN 10 MG TAB (XARELTO) PO SCH (18:00)
[2018-08-29 22:00] VITALS: BP 106/74
[2018-08-30] MEDS: PERCOCET 5MG/325MG TAB PO PRN ×3 (03:08→12:18)
[2018-08-30 06:00] VITALS: BP 127/79
[2018-08-30] MEDS ORDERED: XARE10TA PO (06:10)
[2018-08-30 06:35] LABS: HEMATOCRIT 37.9 % (42.0-52.0); HEMOGLOBIN 12.2 g/dl (13.5-17.5); MEAN CORPUSCULAR HEMOGLOBIN 26.3 pg (27.0-33.0); MEAN CORPUSCULAR HGB CONC 32.2 g/dl (32.0-36.5); MEAN CORPUSCULAR VOLUME 81.9 fl (80.0-96.0); PLATELET COUNT, AUTOMATED 171 10^3/uL (150-450); RED BLOOD COUNT 4.63 10^6/uL (4.30-6.10); WHITE BLOOD COUNT 10.3 10^3/uL (4.0-10.0)
[2018-08-30 08:00] VITALS: O2SAT 96
[2018-08-30 08:02] VITALS: BP 127/79
[2018-08-30] MEDS: LISINOPRIL 5 MG TAB PO SCH (08:02)
[2018-08-30] MEDS: OMEPRAZOLE 20 MG CAP PO SCH (08:02)
[2018-08-30] MEDS: CHLORTHALIDONE 12.5MG PER 1/2 TABLET PO SCH (08:02)
[2018-08-30] MEDS: MOM 30ML SUSPENSION UDC PO SCH (08:03)
[2018-08-30] MEDS: MIRALAX *UNIT DOSE* 17GM PACKET PO SCH (08:03)
--- NOTE | 2018-08-30 12:44 | IPNPDOC ---
Date Seen The patient was seen on 08/30/18. Progress Note SUBJECTIVE: Overnight, pt had a tmax of 102, and current temp of 100.3, but denies any sob, cough, dysuria, urgency and frequency, chills. Primary team, ortho cleared the pt for dc home. Pt has no c/o aside from achy left hip. He has passed HSE and ready for discharge. he denies any abd pain, sore throat, headache. OBJECTIVE: PHYSICAL EXAMINATION: VITALS:PLS SEE BELOW GEN: AAOX3 no cyanosis, icterus, respiratory distress. speaks in full sentences Neck: Supple with no lymphadenopathy or jugular venous distention (JVD). Lungs: Clear to auscultation bilaterally with no wheezes, rales, rhonchi. Cardiac: S1, S2 auscultated with no murmurs, rubs or gallops. Abdomen: Soft, nontender.obese no hepatosplenomegaly. (+) bowel soundsx 4quadrants Extremities: postop left hip . no erythema, edema or ecchymosis. He has discomfort with range of motion. skin: b/l LE warm dry well perfused pink in color EKG notable for a sinus rhythm with right bundle branch block and nonspecific T-wave abnormalities. Chest x-ray with no acute cardiopulmonary process. OUTPATIENT LABORATORY DATA: White blood count 6.3, red blood count 5.86, hemoglobin 15.6, hematocrit 48.8, ESR 8, BUN 24, creatinine 0.99, PT 13.4, INR 1.05. ASSESSMENT AND PLAN: 48-year-old male past medical history significant for morbid obesity bmi 45, obstructive Sleep apnea, hypertension, gastroesophageal reflux disease, low testosterone s/p left hip arthroplasty due to severe DJD limiting his ADL's. He denies any prior history of CHF, MA, CAD, dyslipidemia, DM, or CKD. He denies any sob, chest pain, pressure, tightness, lightheadedness, dizziness, weight changes, appetite changes, visual changes, headache, rhinorrh ea, tinnitus, sore throat, nausea, vomiting, abdominal pain, dysuria, urgency, frequency, fever, chills, or flank pain, constipation, diarrhea, upper or lower extremity weakness, paresthesiass, dysphagia, odynophagia, BRBPR, melena, black tarry stools, anxiety, depression. Hospitalist was consulted to help manage chronic medical problems Left hip arthroplasty -due to severe DJD limiting ADLs -post op pain mgt, dvt prophylaxis, activity, wound care, and bowel regimen per orthopedic surgery -PT/OT -MARY JO protocol postop Postop fever -DDX: UTI, PNA, atelectasis -check ua prior to dc home -no respiratory symptoms, but if willing, check stat cxr. Abnormal EKG -chronic RBBB -no acute ischemic symptoms MARY JO -resume cpap at home settings morbid obesity bmi 45, complicating care at risk for hypercarbia in light of anesthesia and pain meds mary jo protocol hypertension, resumed home meds-chlorthalidone and lisinopril, with holding parameters gastroesophageal reflux resumed home meds low testosterone outpt fu dvt prophylaxis: per ortho code status: full code VS, I&O, 24H, Fishbone Vital Signs/I&O Vital Signs Date Time Temp Pulse Resp B/P (MAP) Pulse Ox O2 Delivery O2 Flow Rate FiO2 08/30/18 12:18 16 08/30/18 09:05 100.3 08/30/18 08:02 127/79 08/30/18 08:00 106 96 I&O- Last 24 Hours up to 6 AM 08/30/18 06:00 Intake Total 2540 ml Output Total 2900 ml Balance -360 ml Laboratory Data 24H LABS Laboratory Tests 2 08/30/18 05:57: Nucleated Red Blood Cells % (auto) 0.0 CBC/BMP Laboratory Tests 08/30/18 05:57 Red Blood Count 4.63, Mean Corpuscular Volume 81.9, Mean Corpuscular Hemoglobin 26.3 L, Mean Corpuscular Hemoglobin Concent 32.2, Red Cell Distribution Width 15.4 H RUBEN FLOWERS MD Aug 30, 2018 12:44
--- NOTE | 2018-08-30 15:15 | REP ---
CHEST, AP PORTABLE: COMPARISON: 08/02/2018 There is no evidence of acute infiltrate. No pleural effusion is seen. The heart is normal in size. The mediastinal silhouette is unremarkable. The visualized osseous structures are intact. IMPRESSION: No acute pulmonary disease. Unreviewed
== END 2018-08-30 14:30 | disposition home or self-care (01) | DRG 301 ==
LOC: M OR 05:52 → M MS5PR 11:30
PROVIDERS: ADMIT Orthopaedic Surgery; ATTEND Orthopaedic Surgery
PROC: 0SRB02A Replacement of Left Hip Joint with Metal on Polyethylene Synthetic Substitute, Uncemented, Open Approach (ICD-10-PCS; principal; 2018-08-28 07:30)
DX: M16.12 Unilateral primary osteoarthritis, left hip (principal); Z68.42 Body mass index [BMI] 45.0-49.9, adult; I10 Essential (primary) hypertension; E66.01 Morbid (severe) obesity due to excess calories; Z79.899 Other long term (current) drug therapy; G47.33 Obstructive sleep apnea (adult) (pediatric); K21.9 Gastro-esophageal reflux disease without esophagitis; R50.82 Postprocedural fever

== ENCOUNTER → 2018-09-18 | Outpatient (REF) | payer BC ==
[~2018-09-18] MED LIST changes: +OMEP1CAP73 PO; -OMEP20CA4 PO; +PERC5TAB12 PO; +XARE10TA PO
== END ==
LOC: M LAB REF 17:15
PROVIDERS: ATTEND Physician Assistant
DX: R30.0 Dysuria (principal)

== ENCOUNTER 2018-10-02 11:57 | Outpatient (RCR) | payer BC ==
[~2018-10-02 11:57] MED LIST changes: -OMEP1CAP73 PO; +OMEP20CA4 PO
== END 2018-10-05 ==
LOC: M PT 11:57
PROVIDERS: ATTEND Orthopaedic Surgery
DX: Z47.1 Aftercare following joint replacement surgery (principal); Z96.642 Presence of left artificial hip joint

== ENCOUNTER 2018-10-23 07:00 | Outpatient (RCR) | payer BC | END 2018-11-04 | LOC: M PT 07:00 | PROVIDERS: ATTEND Orthopaedic Surgery | DX: Z47.1 Aftercare following joint replacement surgery (principal); Z96.642 Presence of left artificial hip joint ==

== ENCOUNTER 2018-11-06 07:51 | Outpatient (RCR) | payer BC | END 2018-12-05 | LOC: M PT 07:51 | PROVIDERS: ATTEND Orthopaedic Surgery | DX: Z47.1 Aftercare following joint replacement surgery (principal); Z96.642 Presence of left artificial hip joint ==

== ENCOUNTER → 2018-12-09 | Outpatient (CLI) | payer BC ==
[2018-12-09 07:09] LABS: HEMATOCRIT 44.8 % (42.0-52.0); HEMOGLOBIN 13.5 g/dl (13.5-17.5); MEAN CORPUSCULAR HEMOGLOBIN 23.9 pg (27.0-33.0); MEAN CORPUSCULAR HGB CONC 30.1 g/dl (32.0-36.5); MEAN CORPUSCULAR VOLUME 79.3 fl (80.0-96.0); PLATELET COUNT, AUTOMATED 260 10^3/uL (150-450); RED BLOOD COUNT 5.65 10^6/uL (4.30-6.10); WHITE BLOOD COUNT 6.4 10^3/uL (4.0-10.0)
[2018-12-09 08:26] LABS: ALBUMIN 3.2 GM/DL (3.2-5.2); BILIRUBIN,DIRECT 0.2 MG/DL (0.0-0.2); BILIRUBIN,TOTAL 0.5 MG/DL (0.2-1.0); TOTAL PROTEIN 7.1 GM/DL (6.4-8.2)
== END ==
LOC: M LAB 06:35
PROVIDERS: ATTEND Urology
DX: E29.1 Testicular hypofunction (principal)

== ENCOUNTER → 2019-01-27 | Outpatient (CLI) | payer BC ==
[~2019-01-27] MED LIST changes: +OMEP-172 PO; -OMEP20CA4 PO
[2019-01-27 09:54] LABS: BASO % 0.4 % (0.0-1.0); EOS # 0.2 10^3/uL (0.0-0.5); EOS % 3.3 % (0.0-3.0); HEMATOCRIT 46.2 % (42.0-52.0); HEMOGLOBIN 14.1 g/dl (13.5-17.5); LYMPH # 2.7 10^3/uL (1.5-5.0); LYMPH % 40.5 % (24.0-44.0); MEAN CORPUSCULAR HEMOGLOBIN 23.1 pg (27.0-33.0); MEAN CORPUSCULAR HGB CONC 30.5 g/dl (32.0-36.5); MEAN CORPUSCULAR VOLUME 75.6 fl (80.0-96.0); MONO # 0.7 10^3/uL (0.0-0.8); MONO % 10.1 % (0.0-5.0); NEUTROPHILS % 45.1 % (36.0-66.0); PLATELET COUNT, AUTOMATED 280 10^3/uL (150-450); RED BLOOD COUNT 6.11 10^6/uL (4.30-6.10); WHITE BLOOD COUNT 6.7 10^3/uL (4.0-10.0)
[2019-01-27 10:11] LABS: HEMOGLOBIN A1c 6.5 %
[2019-01-27 10:26] LABS: ALBUMIN 3.4 GM/DL (3.2-5.2); ALT/SGPT 143 U/L (12-78); BILIRUBIN,TOTAL 0.6 MG/DL (0.2-1.0); BLOOD UREA NITROGEN 12 MG/DL (7-18); CALCIUM LEVEL 8.7 MG/DL (8.5-10.1); CARBON DIOXIDE LEVEL 26 MEQ/L (21-32); CHLORIDE LEVEL 105 MEQ/L (98-107); CHOLESTEROL LEVEL 163 MG/DL (<200); CHOLESTEROL RISK RATIO 4.794 (<5); CREATININE FOR GFR 0.88 MG/DL (0.70-1.30); GLOMERULAR FILTRATION RATE > 60.0 (>60); GLUCOSE, FASTING 100 MG/DL (70-100); HDL CHOLESTEROL 34 MG/DL (>40); LDL CHOLESTEROL 94 MG/DL (<100); NON-HDL-C 129 MG/DL; POTASSIUM SERUM 4.6 MEQ/L (3.5-5.1); SODIUM LEVEL 139 MEQ/L (136-145); TOTAL PROTEIN 7.4 GM/DL (6.4-8.2); TRIGLYCERIDES LEVEL 177 MG/DL (<150)
== END ==
LOC: M PLALAB 08:08
PROVIDERS: ATTEND Physician Assistant
DX: I10 Essential (primary) hypertension (principal); G47.33 Obstructive sleep apnea (adult) (pediatric); R73.01 Impaired fasting glucose

== ENCOUNTER → 2019-07-07 | Outpatient (CLI) | payer BC ==
[~2019-07-07] MED LIST changes: -OMEP-172 PO; +OMEP1CAP73 PO
[2019-07-07 10:47] LABS: HEMOGLOBIN 14.9 g/dl (13.5-17.5); MEAN CORPUSCULAR HEMOGLOBIN 23.7 pg (27.0-33.0); MEAN CORPUSCULAR HGB CONC 30.4 g/dl (32.0-36.5); MEAN CORPUSCULAR VOLUME 77.9 fl (80.0-96.0); PLATELET COUNT, AUTOMATED 274 10^3/uL (150-450); RED BLOOD COUNT 6.29 10^6/uL (4.30-6.10); WHITE BLOOD COUNT 7.6 10^3/uL (4.0-10.0)
[2019-07-07 10:53] LABS: ALBUMIN 3.4 GM/DL (3.2-5.2); BILIRUBIN,DIRECT 0.1 MG/DL (0.0-0.2); BILIRUBIN,TOTAL 0.5 MG/DL (0.2-1.0); TOTAL PROTEIN 7.7 GM/DL (6.4-8.2)
== END ==
LOC: M PLALAB 07:54
PROVIDERS: ATTEND Urology
DX: E29.1 Testicular hypofunction (principal)
CPT/HCPCS: 36415; 80076; 84403; 85027; G0103

== ENCOUNTER → 2019-08-12 | Outpatient (CLI) | payer BC | LOC: M LABSMTC 13:24 | PROVIDERS: ATTEND Pediatrics | DX: Z11.59 Encounter for screening for other viral diseases (principal) ==

== ENCOUNTER → 2019-10-12 | Outpatient (CLI) | payer BC ==
[2019-10-12 08:46] LABS: BASO % 0.4 % (0.0-1.0); EOS # 0.2 10^3/uL (0.0-0.5); EOS % 2.5 % (0.0-3.0); HEMATOCRIT 44.9 % (42.0-52.0); HEMOGLOBIN 14.2 g/dl (13.5-17.5); LYMPH # 2.8 10^3/uL (1.5-5.0); LYMPH % 41.9 % (24.0-44.0); MEAN CORPUSCULAR HEMOGLOBIN 25.4 pg (27.0-33.0); MEAN CORPUSCULAR HGB CONC 31.6 g/dl (32.0-36.5); MEAN CORPUSCULAR VOLUME 80.2 fl (80.0-96.0); MONO # 0.6 10^3/uL (0.0-0.8); MONO % 9.5 % (0.0-5.0); NEUTROPHILS # 3.1 10^3/uL (1.5-8.5); NEUTROPHILS % 45.4 % (36.0-66.0); PLATELET COUNT, AUTOMATED 227 10^3/uL (150-450); WHITE BLOOD COUNT 6.7 10^3/uL (4.0-10.0)
[2019-10-12 09:06] LABS: ALBUMIN 3.3 GM/DL (3.2-5.2); ALT/SGPT 154 U/L (12-78); BILIRUBIN,TOTAL 0.5 MG/DL (0.2-1.0); BLOOD UREA NITROGEN 22 MG/DL (7-18); CALCIUM LEVEL 8.6 MG/DL (8.5-10.1); CARBON DIOXIDE LEVEL 28 MEQ/L (21-32); CHLORIDE LEVEL 108 MEQ/L (98-107); CREATININE FOR GFR 0.93 MG/DL (0.70-1.30); GLOMERULAR FILTRATION RATE > 60.0 (>60); GLUCOSE, FASTING 101 MG/DL (70-100); POTASSIUM SERUM 4.1 MEQ/L (3.5-5.1); SODIUM LEVEL 141 MEQ/L (136-145); TOTAL PROTEIN 7.3 GM/DL (6.4-8.2)
== END ==
LOC: M LAB 08:06
PROVIDERS: ATTEND Internal Medicine Gastroenterology
DX: K76.89 Other specified diseases of liver (principal)

== ENCOUNTER → 2019-10-15 | Outpatient (CLI) | payer BC ==
--- NOTE | 2019-11-05 12:43 | REP ---
LIVER ULTRASOUND: 10/15/19 CLINICAL: Abnormal live function test. TECHNIQUE: Real time kim scale and color evaluation using curved array transducer. FINDINGS: The liver demonstrates coarsened echotexture with poor through transmission suggesting hepatocellular disease and/or fatty infiltration. No focal hepatic lesions are identified. The pancreas is incompletely identified due to interposed bowel gas. Gallbladder is normal and without gallstones, wall thickening, or pericholecystic fluid. No biliary ductal dilatation is appreciated and the common bile duct measures 5mm diameter. The right kidney measures 11.7 x 7.2 x 5.6cm without hydronephrosis. No ascites in the visualized right upper quadrant. IMPRESSION: 1. Findings suggesting hepatocellular disease and/or fatty infiltration. No focal hepatic lesion identified MTDD
== END ==
LOC: M RAD 08:14
PROVIDERS: ATTEND Internal Medicine Gastroenterology
DX: K76.89 Other specified diseases of liver (principal)

== ENCOUNTER 2019-12-14 09:19 | Emergency (ER) | payer BC, SELFPAY ==
[~2019-12-14] VITALS: Ht 177.8 cm; Wt 154.3 kg
[2019-12-14 10:05] LABS: BASO % 0.3 % (0.0-1.0); EOS # 0.2 10^3/uL (0.0-0.5); EOS % 2.9 % (0.0-3.0); HEMATOCRIT 44.7 % (42.0-52.0); HEMOGLOBIN 13.5 g/dl (13.5-17.5); LYMPH # 2.3 10^3/uL (1.5-5.0); LYMPH % 39.5 % (24.0-44.0); MEAN CORPUSCULAR HEMOGLOBIN 24.4 pg (27.0-33.0); MEAN CORPUSCULAR HGB CONC 30.2 g/dl (32.0-36.5); MEAN CORPUSCULAR VOLUME 80.8 fl (80.0-96.0); MONO # 0.6 10^3/uL (0.0-0.8); MONO % 9.9 % (0.0-5.0); NEUTROPHILS # 2.8 10^3/uL (1.5-8.5); NEUTROPHILS % 47.1 % (36.0-66.0); PLATELET COUNT, AUTOMATED 220 10^3/uL (150-450); RED BLOOD COUNT 5.53 10^6/uL (4.30-6.10); WHITE BLOOD COUNT 5.9 10^3/uL (4.0-10.0)
[2019-12-14 10:16] LABS: INR 0.92; PROTHROMBIN TIME 12.6 SECONDS (12.5-14.3)
--- NOTE | 2019-12-14 10:20 | REP ---
INDICATION: CHEST PAIN. COMPARISON: 08/30/2018 TECHNIQUE: AP upright portable chest FINDINGS: Lungs are well inflated. There is no effusion, infiltrate, atelectasis or mass. No pneumothorax. Heart not enlarged for portable technique. No vascular redistribution or edema. The aorta and airway intact. No mediastinal widening. Bones without acute finding. No free air under the diaphragm. IMPRESSION: No acute cardiopulmonary disease, stable chest. <Electronically signed by Jin Mazariegos > 12/14/19 [id number]
[2019-12-14 10:30] LABS: ALBUMIN 3.4 GM/DL (3.2-5.2); ALT/SGPT 163 U/L (12-78); BILIRUBIN,DIRECT 0.2 MG/DL (0.0-0.2); BILIRUBIN,TOTAL 0.8 MG/DL (0.2-1.0); CK-MB VALUE MASS 1.3 NG/ML (<3.6); CPK CREATINE PHOSPHOKINASE 98 U/L (39-308); LIPASE 99 U/L (73-393); MB/CK RELATIVE INDEX 1.33 (< OR =4); TOTAL PROTEIN 7.2 GM/DL (6.4-8.2); TROPONIN I < 0.02 NG/ML (< 0.10)
[2019-12-14 12:51] LABS: CK-MB VALUE MASS 1.3 NG/ML (<3.6); CPK CREATINE PHOSPHOKINASE 104 U/L (39-308); MB/CK RELATIVE INDEX 1.25 (< OR =4); TROPONIN I < 0.02 NG/ML (< 0.10)
[2019-12-14] MEDS ORDERED: ISOVUE-370 76% 100ML VIAL As Ordered ONE (13:33)
--- NOTE | 2019-12-14 14:02 | REP ---
INDICATION: pleuritic chest pain r/o PE. COMPARISON: Portable chest 12/14/2019 TECHNIQUE: CT angiogram chest performed following the intravenous administration of 75 cc of Isovue 370. Sagittal and coronal reconstruction images are performed. FINDINGS: Lungs: Clear, no infiltrate or nodule. Some minimal apical pleuroparenchymal scarring. Mediastinum: No adenopathy. Pulmonary arteries: No evidence of pulmonary embolism. Deedee: No adenopathy. Axilla: No adenopathy. Pleura: No effusion, pleural thickening or pleural calcified plaque.. Heart: Some mild left atrial prominence but no gross cardiomegaly pericardial thickening or effusion. Thoracic aorta: No aneurysm or dissection. Upper abdominal structures: Unremarkable. Visualized osseous structures: Unremarkable. IMPRESSION: No CT evidence of pulmonary embolism, aortic aneurysm, dissection, mediastinal hilar adenopathy or other acute finding. Enlargement of the left atrium without gross cardiomegaly..No acute infiltrate seen. <Electronically signed by Jin Mazariegos > 12/14/19 1843
[2019-12-14 14:15] VITALS: BP 123/86
--- NOTE | 2019-12-15 09:40 | ECGEPIP ---
[facility] - ED Test Date: 2019-12-14 Pat Name: DEANDRE COULTER Department: Room: - Gender: Male Station Tender: sanjay : 1970 Requested By: Rico Linares Order Number: [id number] Reading MD: Rico Palacios Measurements Intervals [place] Rate: 84 P: 30 W[place]: 140 QRS: 22 QRSD: 104 T: 15 QT: 358 QTc: 425 Interpretive Statements SINUS RHYTHM INCOMPLETE RIGHT BUNDLE BRANCH BLOCK SIMILAR TO 08/02/18 Electronically Signed on 12-15-2019 9:40:29 EST by Rico Palacios
--- NOTE | 2019-12-15 09:41 | ECGEPIP ---
[facility] - ED Test Date: 2019-12-14 Pat Name: DEANDRE COULTER Department: Room: - Gender: Male [employer] Builder: sanjay : 1970 Requested By: Rico Linares Order Number: [id number] Reading MD: Rico Palacios Measurements Intervals [place] Rate: 73 P: 6 NM: 173 QRS: 19 QRSD: 109 T: 9 QT: 390 QTc: 432 Interpretive Statements SINUS RHYTHM WITH OCCASIONAL SUPRAVENTRICULAR PREMATURE COMPLEXES INCOMPLETE RIGHT BUNDLE BRANCH BLOCK SIMILAR TO PRIOR ON SAME DATE Electronically Signed on 12-15-2019 9:41:11 EST by Rico Palacios
== END 2019-12-14 14:37 | disposition home or self-care (01) ==
LOC: M ED 09:19
DX: R07.89 Other chest pain (principal); R05 Cough; I45.19 Other right bundle-branch block; I10 Essential (primary) hypertension; K76.0 Fatty (change of) liver, not elsewhere classified; G47.33 Obstructive sleep apnea (adult) (pediatric); E29.1 Testicular hypofunction; E66.8 Other obesity; Z79.899 Other long term (current) drug therapy; Z79.01 Long term (current) use of anticoagulants; Z91.030 Bee allergy status
CPT/HCPCS: 36415; 71045; 71275; 80047; 80076; 82550; 82553; 83690; 84484; 85025; 85610; 93005; 93041; 94760; 99285; Q9967

== ENCOUNTER → 2020-02-09 | Outpatient (CLI) | payer BC ==
[2020-02-09 06:58] LABS: BASO % 0.5 % (0.0-1.0); EOS # 0.2 10^3/uL (0.0-0.5); EOS % 2.8 % (0.0-3.0); HEMOGLOBIN 14.2 g/dl (13.5-17.5); LYMPH # 2.8 10^3/uL (1.5-5.0); LYMPH % 42.4 % (24.0-44.0); MEAN CORPUSCULAR HEMOGLOBIN 24.5 pg (27.0-33.0); MEAN CORPUSCULAR HGB CONC 30.9 g/dl (32.0-36.5); MEAN CORPUSCULAR VOLUME 79.3 fl (80.0-96.0); MONO # 0.6 10^3/uL (0.0-0.8); MONO % 9.4 % (0.0-5.0); NEUTROPHILS # 2.9 10^3/uL (1.5-8.5); NEUTROPHILS % 44.6 % (36.0-66.0); PLATELET COUNT, AUTOMATED 222 10^3/uL (150-450); WHITE BLOOD COUNT 6.5 10^3/uL (4.0-10.0)
[2020-02-09 07:32] LABS: ALBUMIN 3.4 GM/DL (3.2-5.2); ALT/SGPT 248 U/L (12-78); BILIRUBIN,TOTAL 0.6 MG/DL (0.2-1.0); BLOOD UREA NITROGEN 13 MG/DL (7-18); CALCIUM LEVEL 8.6 MG/DL (8.5-10.1); CARBON DIOXIDE LEVEL 27 MEQ/L (21-32); CHLORIDE LEVEL 105 MEQ/L (98-107); CHOLESTEROL LEVEL 158 MG/DL (<200); CREATININE FOR GFR 0.86 MG/DL (0.70-1.30); GLOMERULAR FILTRATION RATE > 60.0 (>60); GLUCOSE, FASTING 116 MG/DL (70-100); HDL CHOLESTEROL 40 MG/DL (>40); LDL CHOLESTEROL 93 MG/DL (<100); NON-HDL-C 118 MG/DL; POTASSIUM SERUM 4.2 MEQ/L (3.5-5.1); SODIUM LEVEL 140 MEQ/L (136-145); TOTAL PROTEIN 7.3 GM/DL (6.4-8.2); TRIGLYCERIDES LEVEL 125 MG/DL (<150)
== END ==
LOC: M LAB 06:27
PROVIDERS: ATTEND Nurse Practitioner Family
DX: I10 Essential (primary) hypertension (principal)

== ENCOUNTER → 2020-02-19 | Outpatient (CLI) | payer BC ==
[2020-02-19 10:38] LABS: HEMOGLOBIN 14.7 g/dl (13.5-17.5); MEAN CORPUSCULAR HGB CONC 30.6 g/dl (32.0-36.5); MEAN CORPUSCULAR VOLUME 81.8 fl (80.0-96.0); PLATELET COUNT, AUTOMATED 265 10^3/uL (150-450); RED BLOOD COUNT 5.87 10^6/uL (4.30-6.10); WHITE BLOOD COUNT 6.8 10^3/uL (4.0-10.0)
[2020-02-19 10:54] LABS: HEMOGLOBIN A1c 5.8 %
[2020-02-19 11:21] LABS: ALBUMIN 3.7 GM/DL (3.2-5.2); BILIRUBIN,DIRECT 0.2 MG/DL (0.0-0.2); BILIRUBIN,TOTAL 0.7 MG/DL (0.2-1.0); PROSTATIC SPECIFIC AG MONITOR 1.36 NG/ML (< 4.00); TOTAL PROTEIN 7.6 GM/DL (6.4-8.2)
[2020-02-19 11:28] LABS: CREATININE, URINE 90.3 MG/DL; MALB URINE SIEMENS < 5.0 MG/L; MAU/CREAT RATIO 5.5 MCG/MG (0.0-30.0)
== END ==
LOC: M PLALAB 07:56
PROVIDERS: ATTEND Urology
DX: E29.1 Testicular hypofunction (principal); R73.03 Prediabetes

== ENCOUNTER → 2020-03-29 | Outpatient (REF) ==
[~2020-03-29] MED LIST changes: -LISI-542 PO; +LISI-898 PO
== END ==
LOC: M LABSMTC 10:00
PROVIDERS: ATTEND Pediatrics
DX: Z20.822 Contact with and (suspected) exposure to COVID-19 (principal)

== ENCOUNTER → 2020-04-01 | Outpatient (REF) | LOC: M LABSMTC 10:06 | PROVIDERS: ATTEND Pediatrics | DX: Z11.52 Encounter for screening for COVID-19 (principal) ==

== ENCOUNTER → 2020-08-11 | Outpatient (CLI) | payer BC ==
[2020-08-11 10:14] LABS: BASO % 0.4 % (0.0-1.0); EOS # 0.2 10^3/uL (0.0-0.5); EOS % 2.3 % (0.0-3.0); HEMATOCRIT 44.5 % (42.0-52.0); LYMPH # 2.4 10^3/uL (1.5-5.0); LYMPH % 34.3 % (24.0-44.0); MEAN CORPUSCULAR HEMOGLOBIN 24.9 pg (27.0-33.0); MEAN CORPUSCULAR HGB CONC 31.5 g/dl (32.0-36.5); MEAN CORPUSCULAR VOLUME 79.2 fl (80.0-96.0); MONO # 0.7 10^3/uL (0.0-0.8); MONO % 10.2 % (2.0-8.0); NEUTROPHILS # 3.6 10^3/uL (1.5-8.5); NEUTROPHILS % 52.5 % (36.0-66.0); PLATELET COUNT, AUTOMATED 241 10^3/uL (150-450); RED BLOOD COUNT 5.62 10^6/uL (4.30-6.10); WHITE BLOOD COUNT 6.9 10^3/uL (4.0-10.0)
[2020-08-11 10:39] LABS: ALBUMIN 3.6 GM/DL (3.2-5.2); ALT/SGPT 310 U/L (12-78); BILIRUBIN,TOTAL 0.8 MG/DL (0.2-1.0); BLOOD UREA NITROGEN 19 MG/DL (7-18); CALCIUM LEVEL 8.8 MG/DL (8.5-10.1); CARBON DIOXIDE LEVEL 27 MEQ/L (21-32); CHLORIDE LEVEL 104 MEQ/L (98-107); CREATININE FOR GFR 0.88 MG/DL (0.70-1.30); GLOMERULAR FILTRATION RATE > 60.0 (>60); GLUCOSE, FASTING 108 MG/DL (70-100); POTASSIUM SERUM 4.2 MEQ/L (3.5-5.1); SODIUM LEVEL 137 MEQ/L (136-145); TOTAL PROTEIN 7.4 GM/DL (6.4-8.2)
== END ==
LOC: M PLALAB 07:07
DX: R73.03 Prediabetes (principal); I10 Essential (primary) hypertension

== ENCOUNTER → 2020-09-17 | Outpatient (CLI) | payer BC ==
--- NOTE | 2020-09-17 17:05 | REP ---
INDICATION: PRAVEEN DIAG MAMMO/R BREAST LUMP; R BREAST LUMP/N63.41. Raise incised tender lump right breast x2 months. Under right breast nipple area. COMPARISON: No comparison breast imaging. TECHNIQUE: Bilateral CC and MLO) view(s) were taken. FINDINGS: Mammographic images demonstrate fan-shaped area of fibroglandular tissue in the subareolar region of the right breast consistent with gynecomastia. This is unilateral. Left breast views are unremarkable and fat replaced tissue seen. There is no evidence of adenopathy. No mass is seen in the area the palpable lump in the right breast or elsewhere on either side mammographically. 3D tomography shows no additional findings. Targeted right breast and bilateral subareolar sonography: In the retroareolar region of the right breast in the area the palpable lump there is a fan-shaped small amount of hypoechoic fibroglandular tissue. This is compatible with gynecomastia. No masslike features are seen. No cyst is observed. Contralateral subareolar scanning on the left is unremarkable. IMPRESSION: BI-RADS/ACR category 2 benign findings. Findings consistent with unilateral right-sided gynecomastia. This mammogram was interpreted with the aid of an FDA-approved computer-aided detection system. The patient states she had a clinical breast exam in August of 2020.. The patient letter being requested is male patient letter M 2. RECOMMENDATION: Clinical follow-up is advised. Repeat imaging if symptoms progress.. <Electronically signed by Kennedy Gupta > 09/17/20 [id number]
== END ==
LOC: M WHC 13:59
PROVIDERS: ATTEND Family Medicine
DX: N62 Hypertrophy of breast (principal)
CPT/HCPCS: 76642; 77066; G0279

== ENCOUNTER → 2020-10-14 | Outpatient (REF) | payer BC ==
[2020-10-14 16:09] LABS: HEMATOCRIT 46.8 % (42.0-52.0); HEMOGLOBIN 14.9 g/dl (13.5-17.5); MEAN CORPUSCULAR HEMOGLOBIN 25.4 pg (27.0-33.0); MEAN CORPUSCULAR HGB CONC 31.8 g/dl (32.0-36.5); MEAN CORPUSCULAR VOLUME 79.9 fl (80.0-96.0); PLATELET COUNT, AUTOMATED 295 10^3/uL (150-450); RED BLOOD COUNT 5.86 10^6/uL (4.30-6.10); WHITE BLOOD COUNT 10.5 10^3/uL (4.0-10.0)
[2020-10-14 16:38] LABS: ALBUMIN 3.6 GM/DL (3.2-5.2); BILIRUBIN,DIRECT 0.1 MG/DL (0.0-0.2); BILIRUBIN,TOTAL 0.6 MG/DL (0.2-1.0); PROSTATIC SPECIFIC AG MONITOR 1.05 NG/ML (< 4.00)
== END ==
LOC: M LABDRAWC 15:41
PROVIDERS: ATTEND Urology
DX: E29.1 Testicular hypofunction (principal)

== ENCOUNTER → 2021-05-30 | Outpatient (CLI) | payer BC ==
[~2021-05-30] MED LIST changes: -LISI-898 PO; +LISI5TAB11 PO
[2021-05-30 10:54] LABS: HEMOGLOBIN A1c 5.9 %
[2021-05-30 11:18] LABS: MALB URINE SIEMENS 8.2 MG/L; MAU/CREAT RATIO 3.4 MCG/MG (0.0-30.0)
[2021-05-30 11:25] LABS: ALBUMIN 3.4 GM/DL (3.2-5.2); ALT/SGPT 284 U/L (12-78); BILIRUBIN,TOTAL 0.7 MG/DL (0.2-1.0); BLOOD UREA NITROGEN 21 MG/DL (7-18); CALCIUM LEVEL 9.1 MG/DL (8.5-10.1); CARBON DIOXIDE LEVEL 27 MEQ/L (21-32); CHLORIDE LEVEL 105 MEQ/L (98-107); CHOLESTEROL LEVEL 143 MG/DL (<200); CHOLESTEROL RISK RATIO 4.333 (<5); CREATININE FOR GFR 0.85 MG/DL (0.70-1.30); GLOMERULAR FILTRATION RATE > 60.0 (>60); GLUCOSE, FASTING 112 MG/DL (70-100); HDL CHOLESTEROL 33 MG/DL (>40); LDL CHOLESTEROL 86 MG/DL (<100); NON-HDL-C 110 MG/DL; POTASSIUM SERUM 3.9 MEQ/L (3.5-5.1); SODIUM LEVEL 140 MEQ/L (136-145); TOTAL PROTEIN 7.5 GM/DL (6.4-8.2); TRIGLYCERIDES LEVEL 119 MG/DL (<150)
== END ==
LOC: M PLALAB 07:10
PROVIDERS: ATTEND Nurse Practitioner Family
DX: R73.03 Prediabetes (principal)